=== PATIENT | male | born 1955 | race Caucasian/White ===

== ENCOUNTER 2024-09-11 09:54 | Outpatient (CLI) | payer MEDICARE, SELFPAY ==
--- NOTE | ~2024-09-11 | US_ITS ---
RIGHT LOWER EXTREMITY VENOUS ULTRASOUND Ordering provider: Salvatore Waite, KERRY History: . Y . Comparison: None. FINDINGS: --COMMON FEMORAL: Patent and free of thrombus. Normal compressibility, phasic flow and augmentation. --PROXIMAL SUPERFICIAL FEMORAL: Patent and free of thrombus. Normal compressibility, phasic flow and augmentation. --DISTAL SUPERFICIAL FEMORAL: Patent and free of thrombus. Normal compressibility, phasic flow and au gmentation. --POPLITEAL: Patent and free of thrombus. Normal compressibility, phasic flow and augmentation. --POSTERIOR TIBIAL: Patent and free of thrombus. Normal compressibility, phasic flow and augmentation . IMPRESSION: Negative right lower extremity venous US. No deep vein thrombosis. Reviewed, dictated and finalized at location A.
--- OUTSIDE RECORDS SUMMARY | 2024-09-11 11:09 | XMS_ITS | CONTINUITY OF CARE DOCUMENT ---
Author Name ant cain Address Unknown Organization [facility] Address [address] [place] [address] Phone [phone] Care Team Providers Care Retail Shift Supervisor Name Role Phone Alexandria Garrett MD Unavailable Alexandria Garrett MD Unavailable INSURANCE PROVIDERS Payer name Policy type / Coverage type [facility] republican ID HUMANA GOLD PLUS HMO HMO [id number]
--- OUTSIDE RECORDS SUMMARY | 2024-09-11 11:09 | XMS_ITS | Data Portability ---
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 X-rays demonstrate the above. He has no acute findings noted on his x-rays recently. We talked about treatment options today in detail he would like to start with a course of physical therapy we will get him moving we will also going to get a venous duplex scan stat to check for DVT right lower extremity. If this is negative he is going to work with elevation range of motion and swelling control with compression stockings as well. He would like to change to naproxen 500 mg b.i.d. with food we will get him a prescription for this I will see him back in 3 weeks to see what impact treatment has had. I have advised him to take the boot off several times a day to work on range of motion and strengthening. As he starts to feel comfortable he can get out of the boot we will see how he is doing in 3 weeks. He voiced understanding agrees with the above plan call for any further problems difficulties or questions. [email or web address] Not available 09/11/2024 09:51:25 Plan of Treatment Reminders Order Date Submit Date Provider Last Modified By Organization Details Last Modified Time Details Appointments Any 5 2024 08:00A M KERRY Sal Not available Not available Not available Any 2024 08:45A M KERRY Sal Not available Not available Not available Lab None recorded. Referral physical therapist referral - please contact patient to schedule 2024 025 [facility], [address], [place], [address], 09/11/2024 11:31:09 Procedures None recorded. Surgeries None recorded. Imaging US, duplex, venous, lower extremity - Please call Salvatore Waite PA-C 2024 025 [email or web address] [facility], [address], [place], [address], 09/11/2024 10:42:57 Medication Orders naproxen 500 mg tablet 2024 025 [email or web address] [id number], [address] [facility], [place], [place], [id number], 09/11/2024 10:20:19 Patient TargetsNo targets recorded. Patient InstructionsNo instructions recorded. Reason for Referral Physical Therapist Referral for Pain of right ankle joint please contact patient to schedule Referring Physician: Salvatore Waite, Orthopedic Surgery, Encounter Date: 09/11/2024 Results Created Date Observation Date Name Description Value Unit Range Abnormal Flag Note LastModifiedBy Organization Detail LastModifiedTime 03/29/20 21 03/29/2021 COVID -19 (SARS COV-2 ) RNA, ALEXY covid-19 RNA negati ve This test has been autho rized by the FDA under an Emerg ency Use Autho rizat ion (EUA) for use by autho rized labor atori es. Negat kofi resul ts shoul d be treat ed as presu mptiv e and, if incon siste nt with clini freedom signs and sympt oms neces rosalina for patie nt manag ement , shoul d be teste d with diffe rent autho rized or clear ed molec ular tests . Negat kofi resul ts do not precl ude SARS- Co-V- 2 infec tion and shoul d not be used as the sole basis for patie nt manag ement decis ions. Negat kofi resul ts shoul d be consi dered in the nolan xt of a patie nt's recen t expos ures, histo ry and the prese nce of clini freedom signs and sympt oms consi stent with COVID -19. Zachary e christiano w the Fact Sheet s for healt h care provi ders and patie nts at the [facility] te: https ://gl oalpo into care. abbot t/en/ produ ct-de tails /id-n ow-co vid-1 9.htm l Metho dolog y: Isoth ermal Nucle ic Acid Ampli ficat ion Not Available [facility] (Lab) [address] [place], [address], 03/29/2021 13:35:52 03/31/20 21 03/31/2021 imagi ng/di agnos tic resul t No observ ation record ed. [id number] [facility] (One Call Scheduling) [address] [place], [address], 07/19/2022 23:31:04 03/31/20 21 03/31/2021 XR, ariel flores, 1 view [facility] [address] [place], [place] [id number] [phone] Patien t Name: HEATHER LOPEZ Access ion #: [id number] Sex: M : 1955 0 6 Locati on: Attend ing Physic david: ANNE HERNANDEZ Physic david: ANNE HERNANDEZ Exam Date: 2020 2:19 PM Exam Name: XR SHOULD ER LT 1V Admitt ing Diagno sis(es ): RADIOL OGY REPORT - FINAL EXAM: XR SHOULD ER LT 1V HISTOR Y: should er arthro scopy with mini open distal clavic al COMPAR SHANE: None availa ble. TECHNI QUE: A single C-arm of obtain AP view of the left should er was record ed obtain ed during arthro scopy. IMPRES FAMILIA: Osteoa rthrit ic residu als noted. AC joint hypert rophy no fractu re. Create d and electr onical ly signed by: Alon almonte MD Page 1 of 2 [facility] Pati t Name: HEATHER LOPEZ Access ion #: [id number] Sex: M : 1955 0 6 Exam Date: 2020 2:19 PM Exam Name: XR SHOULD ER LT 1V Admitt ing Diagno sis(es ): Signed Date: 2020 3:39 PM (CT) Dictat ed by: Alon almonte MD DD: 2020 3:39 PM (CT) DT: 2020 3:39 PM (CT) Page 2 of [id number] [facility] (Imaging) [address] [place], [address], 07/19/2022 23:31:04 09/10/19 25 09/06/2024 XR, ankle , 3 or more view No observ ation record ed. [email or web address] Not Available 08/20 14:41:44 09/10/19 25 09/06/2024 XR, knee, 1 or 2 view No observ ation record ed. [email or web address] Not Available 08/20 14:41:44 Result Notes None recorded. Problems Name Problem SNOMED Code Status Onset Date Resolution Date Notes Provider Name and Address Organization Details Recorded Time Asymmetric al sensorineu ral hearing loss 828741969 Active 2021 Not Available [facility] 3 23:29:58 Pain of right ankle joint 7992918744551 9106 Active 2024 Ny Lopez CNA null, [place] [facility] 5 09:20:22 Localized edema 081539049 Active 2024 Amelia Maria null, [place] [facility] 5 09:49:11 Localized, primary osteoarthr itis of the ankle and/or foot 821668170 Active 2024 KERRY Sal [address] [facility] [address], [place], [address] , [facility] 09:52:25 Localized, primary osteoarthr itis of the ankle and/or foot 279897411 Active 2024 KERRY Sal [address] [address], [place], [address] , [facility] 5 09:52:34 Sprain of right ankle 0088282082141 9105 Active 2024 KERRY Sal [address] [address], [place], [address] , [facility] 5 09:52:38 Problem Notes None recorded. Procedures Surgical History Date Name Laterality Status Provider Name and Address Organization Details Recorded Time Shoulder completed Ny Lopez CNA [facility] 09/11/2024 09:19:44 Imaging Results Imaging Date Name Status LastModified by [facility] Details LastModified Time 03/31/2021 imaging/tatiana gnostic result completed [id number] [facility] (One Call Scheduling) [address] [place], [address], 07/19/2022 23:31:04 03/31/2021 XR, shoulder, 1 view completed [id number] [facility] (Imaging) [address] [place], [address], 07/19/2022 23:31:04 09/06/2024 XR, ankle, 3 or more view completed Information not available 09/09/2024 14:41:44 09/06/2024 XR, knee, 1 or 2 view completed Information not available 09/09/2024 14:41:44 Procedure Notes None recorded. Medical Equipment None Reported. Allergies No known drug allergies Medications Name Sig Start Date Stop Date Status Note LastModified by Organization Details LastModified Time methocarbam ol 500 mg tablet TAKE 1 TABLET BY MOUTH EVERY 6 HOURS NEEDED FOR MUSCLE SPASM 09/11 completed Not Available Not Available Not Available ibuprofen 800 mg tablet TAKE 1 TABLET BY MOUTH THREE TIMES DAILY NEEDED active Not Available Not Available No t Available prednisone 20 mg tablet TAKE 2 TABLETS BY MOUTH DAILY FOR 5 DAYS 09/11 completed Not Available Not Available Not Available hydrocodone 7.5 mg-acetamin ophen 325 mg tablet Take 1 tablet every 8 hours by oral route. 09/11 completed Not Available Not Available Not Available oxycodone-a cetaminophe n 7.5 mg-325 mg tablet 09/11 completed Not Available Not Available Not Available naproxen 500 mg tablet TAKE 1 TABLET BY MOUTH EVERY 12 HOURS NEEDED FOR PAIN 2024 active Not Available Not Available Not Avai lable colchicine 0.6 mg capsule TAKE 2 CAPSULES BY MOUTH NOW AND 1 CAPSULE IN ONE HOUR 09/11 completed Not Available Not Available Not Available Vitals Date Recorded Body mass index (BMI) Body height Pain severity - 0-10 verbal numeric rating [Score] - Reported Body weight Provider Name and Address Organization Details Last Updated DateTime 03/25/2021 27.8 kg/m2 182.88 cm 7 75584.44 g Not Available [facility] 07/19/2022 23:29:18 Date Recorded Body mass index (BMI) Body height Body weight Provider Name and Address Organization Details Last Updated DateTime 04/06/2021 27.8 kg/m2 182.88 cm 12489.44 g Not Available [facility] 07/19/2022 23:29:18 Date Recorded Body mass index (BMI) Body height Pain severity - 0-10 verbal numeric rating [Score] - Reported Body weight Provider Name and Address Organization Details Last Updated DateTime 04/19/2021 27.1 kg/m2 182.88 cm 7 78318.47 g Not Available [facility] 07/19/2022 23:29:18 Date Recorded Body mass index (BMI) Body height Body weight Provider Name and Address Organization Details Last Updated DateTime 05/17/2021 26.9 kg/m2 182.88 cm 60230.29 g Not Available [facility] 07/19/2022 23:29:18 Date Recorded Body height Body mass index (BMI) Body weight Provider Name and Address Organization Details Last Updated DateTime 09/11/2024 182.88 cm 28.5 kg/m2 37552.4 g ONOFRE Grimes [place] [employer] [facility] 09/11/2024 09:17:34 Social History Question Answer Notes LastModified by Organizat ion Details LastModified Time Tobacco Smoking Status Never Smoker Not Available [facility] 07/19/2022 23:28:22 What Is Your Level Of Alcohol Consumption? Occasional [id number] Information not available 07/19/2022 What Was The Date Of Your Most Recent Tobacco Screening? 01/11/2021 [id number] Information not available 07/19/2022 Sex: Unknown Functional Status None recorded. Mental Status None recorded. Family History Relationship Description Onset Age of this Age Resolved Age Notes LastModified by Organization Details LastModified Time Father Diabetes mellitus [email or web address] Not available 2024 09:18:58 Mother Heart disease [email or web address] Not available 2024 09:19:14 Medical History No medical history recorded. Past Encounters Encounter ID Performer Location Encounter Start Date Encounter Closed Date Diagnosis/Indication Diagnosis SNOMED-CT Code Diagnosis ICD10 Code Diagnosis Note [id number] [facility] [address] [place] [address] 01/11/2021 00:00:00 01/11/2021 15:28:27 [id number] [facility] [address] [place] [address] 02/01/2021 00:00:00 02/01/2021 17:15:29 [id number] [facility] [address] [place] [address] 03/25/2021 00:00:00 03/25/2021 09:56:00 [id number] [facility] [address] [place] [address] 04/06/2021 00:00:00 04/06/2021 16:27:12 [id number] [facility] [address] [place] [address] 04/19/2021 00:00:00 04/19/2021 15:29:49 [id number] [facility] [address] [place] [address] 05/17/2021 00:00:00 05/17/2021 14:44:43 [id number] KERRY Sal [facility] [address] [place] [address] 09/11/2024 08:54:28 09/11/2024 10:42:56 Pain of right ankle joint 3431449296 9151450 M25.571 Localized edema 34224106 4 R60.0 Sprain of right ankle 11 86682386 9523408 S93.401A Localized, primary osteoarthritis of the ankle and/or foot 646732601 M19.071 Health Concerns Section Related Observation LastModified by Organization Detai ls LastModified Time None Recorded Concern Status LastModified by Organization Details LastModified Time None Recorded Advance Directives Directive None Recorded Payers Encounter Date Sequence Insurance Name Policy Number Policy Lilly Covered Member ID Lilly Member ID Guarantor Name 09/11/2024 1 [employer] - GOLD PLUS (MEDICARE REPLACEMENT HMO) Heather Lopez [id number] Heather Lopez Notes Date Note Type Note Provider Name and Address Organization Details Recorded Time 09/11/2024 text/html The patient is a 69-year-old male who presents with a right ankle sprain 3 weeks ago. He states he was getting up in the night to go to the bathroom he tripped over the dog twisted his ankle and fell. He is having persistent pain he went to the emergency room had x-rays performed. 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 He does have some reactive changes throughout the ankle joint due to old trauma and also he has a history of gout that has affected his knee and the ankle on the right. He states he would had on and off problems with the ankle over the years particularly with the gout. He has been treated for this previously. He was doing okay until this recent injury. Does note some generalized swelling from the knee to the toes that it has been somewhat persistent. I reviewed his x-rays in detail today with the patient I agree with the above findings. He states he is still having some moderately severe pain he has been taking ibuprofen which has been upsetting his stomach he has taken naproxen previously he would probably like to try this instead. He denies any weakness he is in a cam walker boot bearing full weight limping around he states when he elevates his leg overnight it helps somewhat but through the day his leg is tight and swollen. He has not been checked for a DVT we are going to get this set up for him today. He comes in today for initial evaluation treatment. New past medical history sheet was reviewed and signed on the intake sheet of today's date drug allergies current medications family social history previous surgical history 10 point review of systems was reviewed and discussed in detail today with the patient. KERRY Sal [address] [facility] [address], [place], [address], [facility] 09/11/2024 09:53:16
== END 2024-09-11 09:55 | disposition home or self-care (01) ==
LOC: ANHIMG 10:00
PROVIDERS: Visit Provider Physician Assistant Surgical
DX: R60.0 Localized edema (principal)
CPT/HCPCS: 93971